=== PATIENT | male | born 1990 | race Caucasian/White ===

== ENCOUNTER 2017-09-21 10:02 | Day surgery (SDC) | payer OTHER ==
[~2017-09-21 10:02] MED LIST: MIDAZOLAM INJ 2 MG/2 ML VIAL (J2250) As Ordered; fentaNYL 100 MCG/2 ML INJECTION (J3010) As Ordered
[2017-09-21] MEDS ORDERED: dexameTHASONE 10 MG/1 ML VIAL PRES.FREE (J1100) (10:03)
[2017-09-21] MEDS ORDERED: LIDOCAINE 1% MDV 20ML VIAL (10:03)
[2017-09-21] MEDS ORDERED: ROPIvacaine 0.5% 30 ML INJECTION (J2795 PER 1MG) (10:03)
[2017-09-21 10:30] LABS: HEMATOCRIT 45.4 % (42.0-52.0); HEMOGLOBIN 15.4 g/dl (13.5-17.5); MEAN CORPUSCULAR HEMOGLOBIN 30.2 pg (27.0-33.0); MEAN CORPUSCULAR HGB CONC 33.9 g/dl (32.0-36.5); PLATELET COUNT, AUTOMATED 307 10^3/uL (150-450); WHITE BLOOD COUNT 5.2 10^3/uL (4.0-10.0)
[2017-09-21] MEDS: LR 1,000 ML IV ×2 (10:35→17:00)
[2017-09-21 11:06] LABS: ANION GAP 9 MEQ/L (8-16); BLOOD UREA NITROGEN 16 MG/DL (7-18); CARBON DIOXIDE LEVEL 28 MEQ/L (21-32); CHLORIDE LEVEL 104 MEQ/L (98-107); GLOMERULAR FILTRATION RATE > 60.0 (>60); GLUCOSE, FASTING 99 MG/DL (70-100); POTASSIUM SERUM 4.4 MEQ/L (3.5-5.1); SODIUM LEVEL 141 MEQ/L (136-145)
[2017-09-21] MEDS ORDERED: fentaNYL 100 MCG/2 ML INJECTION (J3010) As Ordered ×3 (11:43→13:36)
[2017-09-21] MEDS ORDERED: MIDAZOLAM INJ 2 MG/2 ML VIAL (J2250) As Ordered ×2 (11:44→13:35)
[2017-09-21] MEDS: fentaNYL 100 MCG/2 ML INJECTION (J3010) IV ×5 (12:09→17:31)
[2017-09-21] MEDS: MIDAZOLAM INJ 2 MG/2 ML VIAL (J2250) IV (12:09)
[2017-09-21] MEDS: BUPIVACAINE HCL 0.5% 10 ML VIAL As Ordered (13:06)
[2017-09-21] MEDS ORDERED: dexameTHASONE 4 MG/ML 1ML VIAL (J1100) As Ordered (13:35)
[2017-09-21] MEDS ORDERED: PROPOFOL 200 MG/20 ML VIAL As Ordered ×2 (13:35→13:36)
[2017-09-21] MEDS ORDERED: LIDOCAINE 2% INJ 100 MG/5 ML SDV (FOR ANES.) As Ordered (13:35)
[2017-09-21] MEDS ORDERED: ROCURONIUM BROMIDE 50 MG/5 ML VIAL As Ordered (13:35)
[2017-09-21] MEDS ORDERED: ESMOLOL INJ 100MG/10ML VIAL As Ordered (14:12)
[2017-09-21] MEDS: ONDANSETRON 4MG/2ML VIAL (J2405) IV (17:03)
[2017-09-21] MEDS ORDERED: ONDANSETRON 4MG/2ML VIAL (J2405) As Ordered (17:03)
[2017-09-21] MEDS: METOCLOPRAMIDE INJ 10MG/2ML VIAL (J2765) IV (17:15)
[2017-09-21] MEDS ORDERED: HYDROMORPHONE HCL 0.5 MG/ 0.5 ML SYRINGE (J1170 PER 1) IV (17:15)
[2017-09-21] MEDS ORDERED: LR 1,000 ML IV (17:15)
[2017-09-21] MEDS: PERCOCET 5MG/325MG TAB PO (17:15)
[2017-09-21] MEDS ORDERED: METOCLOPRAMIDE INJ 10MG/2ML VIAL (J2765) As Ordered (17:17)
== END 2017-09-21 20:05 | disposition home or self-care (01) ==
LOC: M SDC 10:02
DX: S83.511A Sprain of anterior cruciate ligament of right knee, initial encounter (principal); M94.261 Chondromalacia, right knee; I49.9 Cardiac arrhythmia, unspecified; K21.9 Gastro-esophageal reflux disease without esophagitis; J45.909 Unspecified asthma, uncomplicated; T88.59XD Other complications of anesthesia, subsequent encounter; Z88.2 Allergy status to sulfonamides; Z79.899 Other long term (current) drug therapy; Z87.81 Personal history of (healed) traumatic fracture; X58.XXXA Exposure to other specified factors, initial encounter; Y93.89 Activity, other specified; Y92.89 Other specified places as the place of occurrence of the external cause; Y99.8 Other external cause status
CPT/HCPCS: 29888